=== PATIENT | male | born 1995 | race Caucasian/White ===

== ENCOUNTER → 2020-02-13 | Outpatient (CLI) | payer MEDICARE, MEDICAID ==
[~2020-02-13] MED LIST: ACET-789 PO; TRM50T PO
== END ==
LOC: WOUNDCARE 14:11
PROVIDERS: ATTEND Surgery
DX: D48.5 Neoplasm of uncertain behavior of skin (principal); G80.8 Other cerebral palsy
CPT/HCPCS: 99203